=== PATIENT | female | born 1995 | race Caucasian/White ===

== ENCOUNTER → 2020-03-12 11:58 | Outpatient (CLI) | payer MEDICAID, SELFPAY ==
[2020-03-12 12:37] LABS: Basophils % 0.6 % (0.1-2.0); Eosinophils % 0.8 % (0.1-12.0); Hematocrit 41.3 % (37.0-47.0); Hemoglobin 14.6 g/dL (12.2-16.2); Lymphocytes # 2.4 K/mm3 (0.7-4.5); Lymphocytes % 42.5 % (10-50); Mean Corpuscular HGB Conc 35.5 g/dL (31.8-35.4); Mean Corpuscular Hemoglobin 31.7 pg (27.0-31.2); Mean Corpuscular Volume 89.3 fl (81-99); Mean Platelet Volume 7.8 fl (7.4-10.4); Monocytes # 0.3 K/mm3 (0.1-1.0); Neutrophils # 2.9 K/mm3 (1.8-7.8); Neutrophils % 51.1 % (37.0-80.0); Platelet Count 239 K/mm3 (142-424); Red Blood Count 4.62 M/mm3 (4.20-5.40); Red Cell Distribution Width 13.2 % (11.5-17.5); White Blood Count 5.7 K/mm3 (4.8-10.8)
--- NOTE | 2020-03-12 13:03 | US_ITS ---
PROCEDURE: US TRANSVAGINAL Referring Doctor: Fanny Busch Patient Age:25Y CLINICAL INDICATION: US t/v- severe pelvic pain constant pelvic pain 2 weeks, with IUD. 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 IUD is identified and satisfactory position within the endometrial cavity at the body of the uterus with the T portion of the IUD seen at the fundus.. A few small specular echoes are seen along the cervical canal but no notable findings are otherwise Endometrial stripe measures 6.7 mm thickness Uterus appears normal size 8.3 cm length x5 0.3 x 6.75 cm. Right ovary equals 3.2 cm length x1 0.9 x 2.4 cm. Numerous small follicles about the margin right ovary. Left ovary 2.9 x 1.5 x 3.5 cm. 1.7 x 1.55 cm collapsed cyst or probable hemorrhagic cyst at left ovary No free fluid cul-de-sac IMPRESSION: Uterus appears normal in size. IUD is identified identified and in satisfactory position. T . Ovaries normal size. Left ovary contains 1.7 cm probable hemorrhagic cyst or possible collapsed cyst No free fluid cul-de-sac Dictated by: Brock Waldron MD 03/12/2020 14:12 Brock Waldron MD in OV 03/12/2020 14:12
[2020-03-12 15:24] LABS: Thyroid Stimulating Hormone 2.63 uIU/mL (0.465-4.68)
[2020-03-17 09:59] LABS: 1,25 Dihydroxy Vitamin D 31 pg/mL (.); 1,25-Dihydroxy, Vitamin D-2 <10 pg/mL (.); 1,25-Dihydroxy, Vitamin D-3 31 pg/mL (.)
== END ==
PROVIDERS: Visit Provider Obstetrics & Gynecology
DX: R10.2 Pelvic and perineal pain (principal); R53.83 Other fatigue; R09.89 Other specified symptoms and signs involving the circulatory and respiratory systems; Z97.5 Presence of (intrauterine) contraceptive device
CPT/HCPCS: 36415; 76830; 82652; 84443; 85025

== ENCOUNTER → 2020-03-16 11:33 | Outpatient (CLI) | payer MEDICAID, SELFPAY | PROVIDERS: Visit Provider Obstetrics & Gynecology | DX: R53.83 Other fatigue (principal) | CPT/HCPCS: 36415; 86618 ==

== ENCOUNTER 2020-08-12 14:42 | Emergency (ER) | payer MEDICAID, SELFPAY ==
[2020-08-12 14:50] VITALS: BP 114/94; PULSE 142; RESP 18; TEMP 37.6; O2SAT 98; BMI 21.7
[2020-08-12 14:57] VITALS: BP 110/69; PULSE 124; RESP 16; TEMP 36.6; O2SAT 97; BMI 21.6
--- NOTE | 2020-08-12 14:59 | HMH.EDUTC ---
[facility] [place] Disposition Clinical Impression: Syncope, near Hemorrhoids Qualifiers: Hemorrhoid type: unspecified Qualified Code(s): K64.9 - Unspecified hemorrhoids Disposition: Home, Self-Care Condition on Discharge: Good Instructions: Hemorrhoids, DI for Hemorrhoids Additional Instructions: Drink plenty of fluid. Follow up with your regular doctor. Use the medication as directed. GO TO THE ER FOR ANY WORSENING SYMPTOMS Prescriptions: Hydrocortisone/Pramoxine [Proctofoam-Hc 1%-1% Foam] 10 gm RC QIDP PRN #1 foam PRN Reason: Irritation Transmission Status: Received by [facility] Referrals: Jayson Paredes DO [Primary Care Provider] - Jg Andrews MD [Staff Physician] - Time of Disposition: 17:05 Medical Decision Making - Medical Records Medical records reviewed: No: I reviewed the patient's medical records. - Romaine Inquiry Pt receiving controlled substance: No Vital Signs: 08/12/20 14:50 08/12/20 14:57 08/12/20 15:09 Temperature 99.6 F 98 F Temperature Source Oral Tympanic Pulse Rate Pulse Rate [Left Radial] 142 H 124 H Pulse Rate [Orthostatic Lying Right] 115 H Pulse Rate [Orthostatic Sitting Right] 138 H Pulse Rate [Orthostatic Standing Right] 146 H Respiratory Rate 18 16 Blood Pressure Blood Pressure [Orthostatic Lying Left Arm] 107/61 L Blood Pressure [Orthostatic Sitting Left Arm] 107/69 L Blood Pressure [Orthostatic Standing Left Arm] 102/75 L Blood Pressure [Right Arm] 114/94 H 110/69 Blood Pressure Mean [Right Arm] 100 82 Blood Pressure Source [Right Arm] Automatic Cuff Blood Pressure Position [Right Arm] Sitting 02 Sat by Pulse Oximetry 98 97 Oxygen Delivery Method Room Air Room Air 08/12/20 17:17 Temperature 98 F Temperature Source Pulse Rate 115 H Pulse Rate [Left Radial] Pulse Rate [Orthostatic Lying Right] Pulse Rate [Orthostatic Sitting Right] Pulse Rate [Orthostatic Standing Right] Respiratory Rate 16 Blood Pressure 113/73 Blood Pressure [Orthostatic Lying Left Arm] Blood Pressure [Orthostatic Sitting Left Arm] Blood Pressure [Orthostatic Standing Left Arm] Blood Pressure [Right Arm] Blood Pressure Mean [Right Arm] Blood Pressure Source [Right Arm] Blood Pressure Position [Right Arm] 02 Sat by Pulse Oximetry Oxygen Delivery Method - Lab Data Lab results reviewed: Yes: I reviewed the patient's lab results. Lab Results 08/12/20 15:35: WBC 10.8, RBC 4.53, Hgb 13.6, Hct 39.9, MCV 88.2, MCH 30.0, MCHC 34.0, RDW 13.4, Plt Count 192, MPV 7.7, Neut % (Auto) 91.3 H, Lymph % (Auto) 4.6 L, [place] % (Auto) 3.9, Eos % (Auto) 0.1, Baso % (Auto) 0.1, Neut # (Auto) 9.9 H, Lymph # (Auto) 0.5 L, [place] # (Auto) 0.4, Eos # (Auto) 0.0, Baso # (Auto) 0.0, Total Counted 100, Neutrophils % (Manual) 88 H, Lymphocytes % (Manual) 5 L, Monocytes % (Manual) 7, Platelet Estimate Normal, RBC Morphology Normal 08/12/20 15:35: Sodium 138, Potassium 3.4 L, Chloride 105, Carbon Dioxide 25, Anion Gap 11.4, BUN 12, Creatinine 0.70, Estimated Creat Clear 118, Estimated GFR 102, Est GFR ( Amer) 123, Glucose 141 H, Calcium 9.5, Total Bilirubin 0.8, AST 18, ALT 11 L, Alkaline Phosphatase 50, Total Protein 7.2, Albumin 4.5, Globulin 2.7, Albumin/Globulin Ratio 1.7 08/12/20 16:05: PT 11.5, INR 0.97, APTT 22.6 L 08/12/20 17:27: Urine Color Yellow, Urine Appearance Clear, Urine pH 7.5, Ur Specific [place] 1.010, Urine Protein Negative, Urine Glucose (UA) Negative, Urine Ketones Negative, Urine Blood 1+, Urine Nitrate Negative, Urine Bilirubin Negative, Urine Urobilinogen 0.2, Ur Leukocyte Esterase Negative Result diagrams: 08/12/20 15:35 08/12/20 15:35 Orders (Tests/Meds): ED MEDICATIONS Discontinued Medications Generic Name Dose Route Start Last Admin Trade Name Freq PRN Reason Stop Dose Admin Sodium Chloride 1,000 mls @ 999 mls/hr 08/12/20 15:45 08/12/20 15:38 Sod Chlor 0.9% 1000ml Bag IV 08/12/20 16:45 999 mls/hr .Q1H1M S
[2020-08-12 15:09] VITALS: BP 102/75; BP 107/61; BP 107/69; PULSE 115; PULSE 138; PULSE 146
[2020-08-12 16:16] LABS: Basophils % 0.1 % (0.1-2.0); Eosinophils % 0.1 % (0.1-12.0); Hematocrit 39.9 % (37.0-47.0); Hemoglobin 13.6 g/dL (12.2-16.2); Lymphocytes # 0.5 K/mm3 (0.7-4.5); Lymphocytes % 4.6 % (10-50); Mean Corpuscular Volume 88.2 fl (81-99); Mean Platelet Volume 7.7 fl (7.4-10.4); Monocytes # 0.4 K/mm3 (0.1-1.0); Monocytes % 3.9 % (1.7-9.3); Neutrophils # 9.9 K/mm3 (1.8-7.8); Neutrophils % 91.3 % (37.0-80.0); Platelet Count 192 K/mm3 (142-424); Red Blood Count 4.53 M/mm3 (4.20-5.40); Red Cell Distribution Width 13.4 % (11.5-17.5); White Blood Count 10.8 K/mm3 (4.8-10.8)
[2020-08-12 16:22] LABS: Chloride 105 mmol/L (98-107); Potassium 3.4 mmoL/L (3.5-5.1); Sodium 138 mmol/L (136-145)
[2020-08-12 16:23] LABS: MANUAL DIFFERENTIAL MANUAL DIFFERENTIAL (MANUAL DIFF)
[2020-08-12 16:24] LABS: Alanine Aminotransferase 11 U/L (12-78); Aspartate Amino Transferase 18 U/L (14-36); Blood Urea Nitrogen 12 mg/dl (7-17); Creatinine Clearance Estimated 118 mL/min (50-200); Estimated Glomerular Filt Rate 102 ml/min (>60); GFR (African American) 123 ML/MIN (>60)
[2020-08-12 16:25] LABS: Albumin Level 4.5 g/dl (3.5-5.0); Albumin/Globulin Ratio 1.7 (1.1-1.8); Alkaline Phosphatase 50 U/L (38-126); Anion Gap 11.4 mEq/L (5-15); Bilirubin,Total 0.8 mg/dl (0.2-1.3); Calcium 9.5 mg/dl (8.4-10.2); Carbon Dioxide 25 mmol/L (22.0-30.0); Globulin 2.7 g/dL (1.3-3.2); Glucose 141 mg/dl (74-100); Total Protein,Serum 7.2 g/dl (6.3-8.2)
[2020-08-12 17:03] LABS: Activated Partial Thrombo Time 22.6 seconds (23.6-34.0); INR 0.97 (0.9-1.1); Prothrombin Time 11.5 seconds (9.4-11.8)
[2020-08-12 17:17] VITALS: BP 113/73; PULSE 115; RESP 16; TEMP 36.6
[2020-08-12 17:17] LABS: Lymphocytes % 5 % (10-50); Monocytes % 7 % (2-9); Neutrophils % 88 % (42-76); Platelet Estimate Normal; RBC Morphology Normal; Total Cells Counted 100
[2020-08-12 17:28] LABS: Apearance,Urine Clear (Clear); Color,Urine Yellow (Yellow)
[2020-08-12 17:51] LABS: Bilirubin,Urine Negative (Negative); Blood, Urine 1+ (Negative); Glucose,Urine (UA) Negative (Negative); Ketones,Urine Negative (Negative); PH,Urine 7.5 (5.0-8.5); Protein,Urine Negative (Negative); UTC Leukocyte Esterase,Urine Negative (Negative); UTC Nitrate,Urine Negative (Negative); Urobilinogen,Urine 0.2 EU/dl (0.2)
== END 2020-08-12 17:18 | disposition home or self-care (01) ==
LOC: ER 14:51 → UTC 14:52
PROVIDERS: Emergency Provider Nurse Practitioner Family; PCP Family Medicine
DX: R55 Syncope and collapse (principal); K64.8 Other hemorrhoids; E87.6 Hypokalemia
CPT/HCPCS: 36415; 80053; 81003; 85007; 85025; 85610; 85730; 99202; G0463

== ENCOUNTER → 2020-08-26 14:03 | Outpatient (CLI) | payer MEDICAID, SELFPAY ==
[2020-08-26 14:15] LABS: Chloride 107 mmol/L (98-107); Potassium 4.5 mmoL/L (3.5-5.1); Sodium 141 mmol/L (136-145)
[2020-08-26 14:17] LABS: Blood Urea Nitrogen 11 mg/dl (7-17)
[2020-08-26 14:18] LABS: Alanine Aminotransferase 9 U/L (12-78); Albumin Level 4.5 g/dl (3.5-5.0); Albumin/Globulin Ratio 1.6 (1.1-1.8); Alkaline Phosphatase 60 U/L (38-126); Anion Gap 11.5 mEq/L (5-15); Aspartate Amino Transferase 19 U/L (14-36); Bilirubin,Total 0.6 mg/dl (0.2-1.3); Calcium 9.4 mg/dl (8.4-10.2); Carbon Dioxide 27 mmol/L (22.0-30.0); Cholesterol 165 mg/dl (140-200); Estimated Glomerular Filt Rate 122 ml/min (>60); GFR (African American) 147 ML/MIN (>60); Globulin 2.9 g/dL (1.3-3.2); Glucose 79 mg/dl (74-100); Total Protein,Serum 7.4 g/dl (6.3-8.2); Triglycerides 115 mg/dl (30-150); VLDL Cholesterol 23 mg/dL (0-40)
[2020-08-26 14:19] LABS: Chol/HDL Ratio 3.8 (1-3.5); HDL Cholesterol 44 mg/dl (40-60)
[2020-08-26 14:30] LABS: Direct LDL Cholesterol 91.63 mg/dL (100-129)
[2020-08-26 14:33] LABS: Basophils # 0.1 K/mm3 (0-0.2); Basophils % 0.7 % (0.1-2.0); Eosinophils # 0.1 K/mm3 (0.0-0.4); Eosinophils % 0.9 % (0.1-12.0); Hematocrit 42.4 % (37.0-47.0); Hemoglobin 14.3 g/dL (12.2-16.2); Lymphocytes # 2.7 K/mm3 (0.7-4.5); Lymphocytes % 40.1 % (10-50); Mean Corpuscular HGB Conc 33.8 g/dL (31.8-35.4); Mean Corpuscular Hemoglobin 30.7 pg (27.0-31.2); Mean Corpuscular Volume 90.7 fl (81-99); Mean Platelet Volume 8.5 fl (7.4-10.4); Monocytes # 0.3 K/mm3 (0.1-1.0); Monocytes % 4.7 % (1.7-9.3); Neutrophils # 3.6 K/mm3 (1.8-7.8); Neutrophils % 53.6 % (37.0-80.0); Platelet Count 269 K/mm3 (142-424); Red Blood Count 4.67 M/mm3 (4.20-5.40); Red Cell Distribution Width 13.7 % (11.5-17.5); White Blood Count 6.8 K/mm3 (4.8-10.8)
[2020-08-26 14:36] LABS: 25-OH Vitamin D, Total 15.1 ng/mL (30-100); Free T4 (Free Thyroxine) 1.24 ng/dl (0.78-2.19)
[2020-08-26 14:50] LABS: Thyroid Stimulating Hormone 2.43 uIU/mL (0.465-4.68)
== END ==
PROVIDERS: Visit Provider Physician Assistant
DX: Z00.00 Encounter for general adult medical examination without abnormal findings (principal); R53.83 Other fatigue; R55 Syncope and collapse; E16.2 Hypoglycemia, unspecified; E55.9 Vitamin D deficiency, unspecified
CPT/HCPCS: 80053; 80061; 82306; 84439; 84443; 85025

== ENCOUNTER 2021-12-21 17:20 | Emergency (ER) | payer MEDICAID, SELFPAY ==
[2021-12-21 17:21] VITALS: BP 116/69; PULSE 103; RESP 18; O2SAT 100; BMI 21.1
[2021-12-21 18:17] VITALS: BP 125/77; PULSE 120; RESP 15; TEMP 37.6; O2SAT 98; BMI 20.3
--- NOTE | 2021-12-21 18:50 | HMH.EDUTC ---
[facility] [place] Disposition Clinical Impression: Low back pain Qualifiers: Chronicity: acute Back pain laterality: bilateral Sciatica presence: without sciatica Qualified Code(s): M54.50 - Low back pain, unspecified Hematuria Qualifiers: Hematuria type: unspecified type Qualified Code(s): R31.9 - Hematuria, unspecified Disposition: Still a Patient Condition on Discharge: Fair Referrals: Nadine Craig PA [Primary Care Provider] - Time of Disposition: 18:52 Medical Decision Making - Medical Records Medical records reviewed: No: I reviewed the patient's medical records. - Romaine Inquiry Pt receiving controlled substance: No Vital Signs: 12/21/21 18:17 Temperature 99.6 F Temperature Source Oral Pulse Rate [Left] 120 H Respiratory Rate 15 Blood Pressure [Right Arm] 125/77 Blood Pressure Mean [Right Arm] 93 02 Sat by Pulse Oximetry 98 - Lab Data Lab results reviewed: Yes: I reviewed the patient's lab results. Medical Decision Narrative: She was transferred to the ER due to the severity of her back pain with no clear etiology. [facility] [place] HPI - General Stated complaint: LOWER back pain Time Seen by Provider: 12/21/21 18:50 Description of Symptoms (Recalled from Triage Doc. by RN): patient comes in for lower back pain, temp of 101, pt did take tyenol and aleve. HEENT Symptoms (Recalled from RN notes): No Resp Symptoms (Recalled from RN notes): No Skin Symptoms (Recalled from RN notes): No MS Symptoms (Recalled from RN notes): Yes Functional Status (Recalled from RN notes): n/a - History of Present Illness Provider Complaint: She states that she is low back pain since this morning. She states that she is having moderate to severe pain. She denies any radiation of the pain. She denies any dysuria. - Related Data Home Medications Medication Instructions Recorded Confirmed levonorgestrel 20 mcg/24 hours (7 INTRAUTERI 03/12/20 08/26/20 yrs) 52 mg intrauterine device Previous Rx's Medication Instructions Recorded cholecalciferol (vitamin D3) 25 25 mcg PO DAILY #30 cap 08/27/20 mcg (1,000 unit) capsule ergocalciferol (vitamin D2) 1,250 1,250 mcg PO WEEKLY #5 cap 08/27/20 mcg (50,000 unit) capsule benzonatate 100 mg capsule 100 mg PO BID PRN #10 cap 02/09/21 escitalopram oxalate 10 mg tablet See Rx Instructions .ROUTE 10/01/21 .COMPLEX #15 tab Allergies Allergy/AdvReac Type Severity Reaction Status Date / Time No Known Allergies Allergy Verified 12/21/21 18:19 - Worker's Comp Is this a Worker's Comp case?: No H History - Hepatitis A Screen Attestation statement:: This patient has been screened for Hepatitis A risk factors. I have reviewed the patient's past medical history: Yes Other Surgeries: Yes: Other Amputation: No Fractures: Yes Comment: Breast implants - Social History Smoking Status: Never smoker Alcohol Intake: current Alcohol Intake Frequency:: holidays/special occasions only Substance Use Type: denies use Occupational Status: employed Family Hx:: Cancer, Diabetes, Heart Attack, Hypertension, Stroke, Thyroid Disorder, Coronary Artery Disease Comment: IBS, ROS Obtained: Yes All systems reviewed & no additional complaints - Constitutional Constitutional: Reports as per HPI - Eyes Eyes: Denies eye discharge - ENT Ears, Nose, Mouth, and Throat: Denies sore throat - Cardiovascular Cardiovascular: Denies chest pain - Respiratory Respiratory: Denies chest congestion, Denies cough - Gastrointestinal Gastrointestingal: Reports: nausea. Denies: abdominal pain, diarrhea, vomiting - Genitourinary Female Genitourinary: Reports as per HPI - Musculoskeletal Musculoskeletal: Denies joint pain - Integumentary/Breasts Skin/Breast: Denies rash - Neurologic Neurologic: Denies tingling/numbness/burning sensations Physical Exam - General General appearance: alert, in no apparent distress - Head Head exam: atraumatic, normocephalic, norm
[2021-12-21 19:26] LABS: Apearance,Urine Clear (Clear); Color,Urine Yellow (Yellow)
[2021-12-21 19:27] LABS: Bilirubin,Urine Negative (Negative); Blood, Urine 1+ (Negative); Glucose,Urine (UA) Negative (Negative); Ketones,Urine Negative (Negative); Protein,Urine Negative (Negative); UTC Leukocyte Esterase,Urine Negative (Negative); UTC Nitrate,Urine Negative (Negative); UTC Pregnancy Test, Urine Negative (Negative); Urobilinogen,Urine 0.2 EU/dl (0.2)
--- NOTE | 2021-12-21 19:27 | HMH.EDBACK ---
ED Disposition Condition on Discharge: Good - Critical Care Critical Care Time: No <Jean Badillo - Last Filed: 12/21/21 19:40> <Jorge Luis Burciaga - Last Filed: 12/21/21 21:30> Clinical Impression: Low back pain Qualifiers: Chronicity: acute Back pain laterality: bilateral Sciatica presence: without sciatica Qualified Code(s): M54.50 - Low back pain, unspecified Hematuria Qualifiers: Hematuria type: unspecified type Qualified Code(s): R31.9 - Hematuria, unspecified Disposition: Home, Self-Care Instructions: DI for Low Back Pain Additional Instructions: call pcp for follow up Referrals: Nadine Craig PA [Primary Care Provider] - Attestation: On 12/21/21, the high probability of a clinically significant, sudden or life threatening deterioration of the following system(s) required my full and direct attention, intervention and personal management. The time I documented below is in addition to time spent performing reported procedures but includes the following listed in this critical care notation. Medical Decision Making - Medical Records Medical records reviewed: Yes: I reviewed the patient's medical records. - Romaine Inquiry Pt receiving controlled substance: No - Lab Data Result diagrams: 12/21/21 19:00 <Jean Badillo - Last Filed: 12/21/21 19:40> - Lab Data Lab results reviewed: Yes: I reviewed the patient's lab results. Result diagrams: 12/21/21 19:00 12/21/21 19:00 - CT Data CT Scan: Abdomen, Pelvis Time Received: 21:[address] Reviewed: Yes: I have viewed the radiologist's interpretation Preliminary Findings: Normal/NAD <Jorge Luis Burciaga - Last Filed: 12/21/21 21:30> Vital Signs: 12/21/21 17:21 12/21/21 18:17 Temperature 99.6 F Temperature Source Oral Pulse Rate [Left] 103 H 120 H Respiratory Rate 18 15 Blood Pressure [Right Arm] 116/69 125/77 Blood Pressure Mean [Right Arm] 84 93 02 Sat by Pulse Oximetry 100 98 Oxygen Delivery Method Room Air - Lab Data Lab Results 12/21/21 19:00: WBC 7.5, RBC 4.84, Hgb 14.7, Hct 45.0, MCV 92.9, MCH 30.3, MCHC 32.6, RDW 13.5, Plt Count 225, MPV 7.6, Neut % (Auto) 82.5 H, Lymph % (Auto) 7.5 L, [place] % (Auto) 5.9, Eos % (Auto) 1.2, Baso % (Auto) 2.9 H, Neut # (Auto) 6.2, Lymph # (Auto) 0.6 L, [place] # (Auto) 0.4, Eos # (Auto) 0.1, Baso # (Auto) 0.2 12/21/21 19:00: Sodium 137, Potassium 3.8, Chloride 105, Carbon Dioxide 25, Anion Gap 10.8, BUN 11, Creatinine 0.60, Estimated Creat Clear 132, Estimated GFR 121, Est GFR ( Amer) 146, Glucose 91, Calcium 9.3, Total Bilirubin 0.6, AST 27, ALT 13, Alkaline Phosphatase 67, Total Protein 7.9, Albumin 4.9, Globulin 3.0, Albumin/Globulin Ratio 1.6 12/21/21 19:22: Urine Color Yellow, Urine Appearance Clear, Urine pH 6.0, Ur Specific [place] 1.020, Urine Protein Negative, Urine Glucose (UA) Negative, Urine Ketones Negative, Urine Blood 1+, Urine Nitrate Negative, Urine Bilirubin Negative, Urine Urobilinogen 0.2, Ur Leukocyte Esterase Negative, Tst Clinic Negative Orders (Tests/Meds): ORDERS Category Date Time Status Urine Culture Stat Micro 12/21/21 18:06 Received Medical Decision Narrative: stable labs and exam (Jorge Luis Burciaga) Back Pain HPI - General Description of Symptoms (Recalled from ER Triage Doc. by RN): patient comes in for lower back pain, temp of 101, pt did take tyenol and aleve. - History of Present Illness Onset (ago): hour(s) Duration: constant Location: lumbar spine Severity: moderate Radiation: none Exacerbating factors: none Associated symptoms: fever Treatments prior to arrival: NSAIDS <Jean Badillo - Last Filed: 12/21/21 19:40> - General Mode of Arrival: Ambulatory Source of Information: Patient, Medical Record Limitations: No Limitations - History of Present Illness MD Complaint: back pain <Jorge Luis Burciaga - Last Filed: 12/21/21 21:30> - General Stated Complaint: LOWER back pain Time Seen by Provider
[2021-12-21 19:33] LABS: Chloride 105 mmol/L (98-107); Potassium 3.8 mmoL/L (3.5-5.1); Sodium 137 mmol/L (136-145)
[2021-12-21 19:36] LABS: Alanine Aminotransferase 13 U/L (12-78); Albumin Level 4.9 g/dl (3.5-5.0); Albumin/Globulin Ratio 1.6 (1.1-1.8); Alkaline Phosphatase 67 U/L (38-126); Anion Gap 10.8 mEq/L (5-15); Aspartate Amino Transferase 27 U/L (14-36); Bilirubin,Total 0.6 mg/dl (0.2-1.3); Blood Urea Nitrogen 11 mg/dl (7-17); Calcium 9.3 mg/dl (8.4-10.2); Carbon Dioxide 25 mmol/L (22.0-30.0); Creatinine Clearance Estimated 132 mL/min (50-200); Estimated Glomerular Filt Rate 121 ml/min (>60); GFR (African American) 146 ML/MIN (>60); Glucose 91 mg/dl (74-100); Total Protein,Serum 7.9 g/dl (6.3-8.2)
[2021-12-21 19:37] LABS: Basophils # 0.2 K/mm3 (0-0.2); Basophils % 2.9 % (0.1-2.0); Eosinophils # 0.1 K/mm3 (0.0-0.4); Eosinophils % 1.2 % (0.1-12.0); Hemoglobin 14.7 g/dL (12.2-16.2); Lymphocytes # 0.6 K/mm3 (0.7-4.5); Lymphocytes % 7.5 % (10-50); Mean Corpuscular HGB Conc 32.6 g/dL (31.8-35.4); Mean Corpuscular Hemoglobin 30.3 pg (27.0-31.2); Mean Corpuscular Volume 92.9 fl (81-99); Mean Platelet Volume 7.6 fl (7.4-10.4); Monocytes # 0.4 K/mm3 (0.1-1.0); Monocytes % 5.9 % (1.7-9.3); Neutrophils # 6.2 K/mm3 (1.8-7.8); Neutrophils % 82.5 % (37.0-80.0); Platelet Count 225 K/mm3 (142-424); Red Blood Count 4.84 M/mm3 (4.20-5.40); Red Cell Distribution Width 13.5 % (11.5-17.5); White Blood Count 7.5 K/mm3 (4.8-10.8)
--- NOTE | 2021-12-21 19:40 | CT_ITS ---
PROCEDURE INFORMATION: Exam: CT Abdomen And Pelvis Without Contrast Exam date and time: 12/21/2021 7:46 PM Age: 26 years old Clinical indication: Fever; Additional info: Fever, hematuria TECHNIQUE: Imaging protocol: Computed tomography of the abdomen and pelvis without contrast. Radiation optimization: All CT scans at this facility use at least one of these dose optimization techniques: automated exposure control; mA and/or kV adjustment per patient size (includes targeted exams where dose is matched to clinical indication); or iterative reconstruction. COMPARISON: US TRANSVAGINAL 03/12/2020 1:18 PM FINDINGS: Liver: Normal. No mass. Gallbladder and bile ducts: Gallbladder is contracted. Pancreas: Normal. No ductal dilation. Spleen: Normal. No splenomegaly. Adrenal glands: Normal. No mass. Kidneys and ureters: Duplex kidneys. Stomach and bowel: Unremarkable. No obstruction. No mucosal thickening. Appendix: Unremarkable appendix. Intraperitoneal space: Unremarkable. No free air. No significant fluid collection. Vasculature: Unremarkable. No abdominal aortic aneurysm. Lymph nodes: Unremarkable. No enlarged lymph nodes. Urinary bladder: Unremarkable as visualized. Reproductive: There is a 3.8 cm left ovarian cystic lesion, likely a simple cyst. No imaging follow-up is warranted for patient of this age. Bones/joints: Unremarkable. No acute fracture. Soft tissues: Bilateral breast prostheses. IMPRESSION: No acute findings. No source of hematuria identified on this limited noncontrast examination.
--- NOTE | 2021-12-21 20:56 | PC.NURSE ---
pt refused covid and strep test. she stated she wasnt symptomatic
[2021-12-21 21:33] VITALS: BP 124/74; PULSE 100; RESP 16; TEMP 37.1; O2SAT 98
== END 2021-12-21 21:34 | disposition home or self-care (01) ==
LOC: UTC 18:52 → ER 19:11
PROVIDERS: Emergency Medicine; Emergency Provider Nurse Practitioner Family; PCP Physician Assistant
DX: M54.50 Low back pain, unspecified (principal); R31.9 Hematuria, unspecified; R50.9 Fever, unspecified; Z82.49 Family history of ischemic heart disease and other diseases of the circulatory system; Z83.49 Family history of other endocrine, nutritional and metabolic diseases; Z83.3 Family history of diabetes mellitus; Z80.9 Family history of malignant neoplasm, unspecified; Z83.79 Family history of other diseases of the digestive system
CPT/HCPCS: 74176; 80053; 81003; 81025; 85025; 87086; 99283

== ENCOUNTER 2023-03-11 13:17 | Emergency (ER) | payer MEDICAID, SELFPAY ==
[2023-03-11 13:35] VITALS: BP 120/81; PULSE 85; RESP 22; TEMP 36.9; O2SAT 99; BMI 22.5
[2023-03-11 14:03] LABS: UTC Strep Screen (Rapid) Negative (Negative)
--- NOTE | 2023-03-11 14:16 | EXP.UTC ---
Discharge Plan Disposition Patient Disposition: Home, Self-Care Condition: Good Prescriptions Prescriptions: No Action Mirena 20 mcg/24 hours (5 yrs) 52 mg intrauterine device INTRAUTERI ergocalciferol (vitamin D2) 1,250 mcg (50,000 unit) capsule 1,250 mcg PO WEEKLY Qty: 5 2RF cholecalciferol (vitamin D3) 25 mcg (1,000 unit) capsule 25 mcg PO DAILY Qty: 30 2RF benzonatate [Tessalon Perles] 100 mg capsule 100 mg PO BID PRN (Reason: cough) Qty: 10 0RF escitalopram oxalate 10 mg tablet See Rx Instructions .ROUTE .COMPLEX Qty: 15 1RF Dose Instruction: TAKE 1/2 TABLET (5MG) DAILY Rx Instructions: TAKE 1/2 TABLET (5MG) DAILY Referrals Follow up/Referrals: Nadine Craig PA [Primary Care Provider] - See instructions Activity Restrictions/Add. Instructions Additional Instructions/Restrictions: No sign of a bacterial infection. Likely viral. Viruses can take 7-14 days to run their course. Nasal saline and bulb syringe or nose Xiao to remove nasal drainage to help with nasal congestion. Hard to eat, drink, sleep with nasal congestion so important to keep this cleaned out. Monitor temp. Tylenol or Motrin as needed for pain or fever Encourage fluids, water, Gatorade, Powerade, Pedialyte if infant/toddler/child Warm salt water gargles Warm fluids Sore throat lozenges Sleep elevated Humidifier/vaporizer Follow-up immediately for new or worsening symptoms or no noticeable improvement over the next 48-72 hours. Clinical Impressions Clinical Impression: Upper respiratory infection, viral Instructions Patient Instructions: DI for Viral Upper Respiratory Infection-Child Discharge ED Provider: Tristen ([facility])Colby [facility] [place] HPI General Stated complaint: sore throat Mode of Arrival: Ambulatory Source of Information: Patient Limitations: No Limitations Time Seen by Provider: 03/11/23 14:16 Description of Symptoms (Recalled from Triage Doc. by RN): PATIENT C/O SORE THROAT X 2 DAYS HEENT Symptoms (Recalled from RN notes): Yes Resp Symptoms (Recalled from RN notes): No Skin Symptoms (Recalled from RN notes): No MS Symptoms (Recalled from RN notes): No Functional Status (Recalled from RN notes): WNL History of Present Illness Provider Complaint: 28 YR OLD FEMALE PRESENTS FOR SORE THROAT FOR 2 DAYS Related Data Home Medications Medication Instructions Recorded Confirmed levonorgestrel 21 mcg/24 hours (8 intrauterine 03/12/20 08/26/20 yrs) 52 mg intrauterine device (Mirena) Previous Rx's Medication Instructions Recorded cholecalciferol (vitamin D3) 25 25 mcg PO DAILY #30 caps 08/27/20 mcg (1,000 unit) capsule ergocalciferol (vitamin D2) 1,250 1,250 mcg PO WEEKLY #5 caps 08/27/20 mcg (50,000 unit) capsule benzonatate 100 mg capsule 100 mg PO BID PRN cough #10 caps 02/09/21 (Tessalon Perles) escitalopram oxalate 10 mg tablet See Rx Instructions .Route 10/01/21 .COMPLEX #15 tabs Allergies Allergy/AdvReac Type Severity Reaction Status Date / Time No Known Allergies Allergy Verified 12/21/21 18:19 Worker's Comp Is this a Worker's Comp case?: No [facility] Dis[facility]: The information contained in this section may have been updated after the patient was seen, as this information can be updated by other users. 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
[2023-03-11 14:17] VITALS: BP 120/81; PULSE 85; RESP 22; TEMP 36.9; O2SAT 99
== END 2023-03-11 14:30 | disposition home or self-care (01) ==
PROVIDERS: Emergency Provider Nurse Practitioner Family; PCP Physician Assistant
DX: J06.9 Acute upper respiratory infection, unspecified (principal); B34.9 Viral infection, unspecified
CPT/HCPCS: 87880; 99212; 99213; G0463